=== PATIENT | male | born 1965 | race Caucasian/White ===

== ENCOUNTER 2020-04-10 11:09 | Inpatient (IN) | payer OTHER ==
[~2020-04-10] VITALS: Ht 172.7 cm; Wt 118.4 kg
[2020-04-10 11:33] LABS: BASOPHILS # (AUTO) 0.1 /CMM (0.0-0.2); BASOPHILS % (AUTO) 1.1 % (0.0-2.0); HEMATOCRIT 45 % (39-51); HEMOGLOBIN 15.1 g/dL (13.5-17.5); LYMPHOCYTES # (AUTO) 2.6 /CMM (0.8-4.8); LYMPHOCYTES % (AUTO) 41.3 % (20.0-44.0); MEAN CORPUSCULAR HGB CONC 34 g/dl (31.0-36.0); MEAN CORPUSCULAR VOLUME 84 fL (80-96); MONOCYTES # (AUTO) 0.5 /CMM (0.1-1.30); NEUTROPHILS # (AUTO) 2.7 /CMM (1.8-8.9); NEUTROPHILS % (AUTO) 42.6 % (43.0-81.0); PLATELET COUNT (AUTO) 290 /CMM (150-450); WHITE BLOOD COUNT (AUTO) 6.4 K/uL (4.3-11.0)
[2020-04-10] MEDS ORDERED: GABA-532 PO (11:38)
[2020-04-10] MEDS ORDERED: BACL20TA PO (11:38)
[2020-04-10 11:49] LABS: ALANINE AMINOTRANSFERASE 16 U/L (12-78); ALBUMIN 3.8 g/dL (3.4-5.0); ALKALINE PHOSPHATASE 59 U/L (46-116); ASPARTATE AMINOTRANSFERASE 11 U/L (15-37); BILIRUBIN,TOTAL 0.2 mg/dL (0.2-1.0); CALCIUM, SERUM 8.8 mg/dL (8.5-10.1); CARBON DIOXIDE 23 mmol/L (21-32); CHLORIDE 105 mmol/L (98-107); CREATININE 0.9 mg/dL (0.6-1.3); GLUCOSE 112 mg/dL (74-106); POTASSIUM 3.9 mmol/L (3.5-5.1); SODIUM SERUM 141 mmol/L (136-145); TOTAL PROTEIN, SERUM 7.1 g/dL (6.4-8.2); UREA NITROGEN, BLOOD 21 mg/dL (7-18)
[2020-04-10 12:27] LABS: CHOLESTEROL 216 mg/dL (<200); HDL CHOLESTEROL 38 mg/dL (40-60); LDL 123 mg/dL (0-99); TRIGLYCERIDES 254 mg/dL (30-150)
[2020-04-10] MEDS ORDERED: ASPIRIN 81 MG TAB.CHEW ONE (12:47)
[2020-04-10] MEDS ORDERED: ASPIRIN 81 MG TAB.CHEW PO ONE (13:00)
[2020-04-10 15:26] VITALS: BP 130/95
[2020-04-10 15:55] LABS: BASOPHILS # (AUTO) 0.1 /CMM (0.0-0.2); EOSINOPHILS % (AUTO) 5.7 % (0.0-6.0); HEMATOCRIT 46 % (39-51); HEMOGLOBIN 15.2 g/dL (13.5-17.5); LYMPHOCYTES # (AUTO) 2.3 /CMM (0.8-4.8); LYMPHOCYTES % (AUTO) 30.9 % (20.0-44.0); MEAN CORPUSCULAR HGB CONC 33 g/dl (31.0-36.0); MEAN CORPUSCULAR VOLUME 83 fL (80-96); MONOCYTES # (AUTO) 0.6 /CMM (0.1-1.30); MONOCYTES % (AUTO) 8.1 % (2.0-12.0); NEUTROPHILS % (AUTO) 54.3 % (43.0-81.0); PLATELET COUNT (AUTO) 298 /CMM (150-450); RED BLOOD CELL COUNT(AUTO) 5.58 MIL/uL (4.5-6.0); WHITE BLOOD COUNT (AUTO) 7.4 K/uL (4.3-11.0)
[2020-04-10 16:00] VITALS: BP 130/100
[2020-04-10 16:11] LABS: ALBUMIN 3.9 g/dL (3.4-5.0); BILIRUBIN,TOTAL 0.3 mg/dL (0.2-1.0); CREATININE 0.8 mg/dL (0.6-1.3); TOTAL PROTEIN, SERUM 7.4 g/dL (6.4-8.2)
[2020-04-10] MEDS ORDERED: BLOOD SUGAR DIAGNOSTIC 1 EACH STRIP IN SCH ×2 (17:30→18:00)
[2020-04-10 20:00] VITALS: BP_SYST 130; BP_SYST 139; BP_DIAS 81; BP_DIAS 83
[2020-04-10] MEDS: HYDROCODONE/APAP 5/325MG TABLET PO PRN (20:02)
[2020-04-10] MEDS: SIMVASTATIN 20 MG TABLET PO SCH (21:18)
[2020-04-10] MEDS ORDERED: SIMVASTATIN 40 MG TABLET PO SCH (22:00)
[2020-04-11] VITALS: BP 122/74
[2020-04-11 04:00] VITALS: BP 122/79
[2020-04-11 08:00] VITALS: BP 128/79
[2020-04-11] MEDS: PANTOPRAZOLE 40 MG TABLET.DR PO SCH (08:16)
[2020-04-11] MEDS: CLOPIDOGREL BISULFATE 75 MG TABLET PO SCH (08:16)
[2020-04-11] MEDS: ASPIRIN EC 81 MG TABLET.DR PO SCH (08:16)
[2020-04-11] MEDS ORDERED: ASPIRIN EC 325 MG TABLET.DR PO SCH (09:00)
[2020-04-11 12:00] VITALS: BP 135/78
[2020-04-11] MEDS ORDERED: GABA-532 PO (14:36)
[2020-04-11 16:00] VITALS: BP 119/72
[2020-04-11] MEDS: BACLOFEN (10 MG) 10 MG TABLET PO SCH ×2 (16:51→21:08)
[2020-04-11 20:00] VITALS: BP 129/79
[2020-04-11] MEDS: SIMVASTATIN 20 MG TABLET PO SCH (21:08)
[2020-04-12] VITALS: BP 135/77
[2020-04-12 04:00] VITALS: BP 126/82
[2020-04-12] MEDS: GABAPENTIN 300 MG CAPSULE PO SCH ×2 (07:09→12:04)
[2020-04-12] MEDS: PANTOPRAZOLE 40 MG TABLET.DR PO SCH (07:09)
[2020-04-12 08:00] VITALS: BP 144/76
[2020-04-12] MEDS: ASPIRIN EC 81 MG TABLET.DR PO SCH (08:42)
[2020-04-12] MEDS: CLOPIDOGREL BISULFATE 75 MG TABLET PO SCH (08:42)
[2020-04-12] MEDS: BACLOFEN (10 MG) 10 MG TABLET PO SCH ×4 (08:42→21:09)
[2020-04-12] MEDS ORDERED: CLOP75TA15 PO (11:02)
[2020-04-12] MEDS ORDERED: SIMV-46 PO (11:07)
[2020-04-12] MEDS ORDERED: ASPI-1420 PO (11:07)
[2020-04-12] MEDS: HYDROCODONE/APAP 5/325MG TABLET PO PRN (14:52)
[2020-04-12 16:00] VITALS: BP 124/76
[2020-04-12 20:00] VITALS: BP 138/78
[2020-04-12] MEDS: SIMVASTATIN 20 MG TABLET PO SCH (21:09)
[2020-04-13] VITALS (13 sets, daily range): BP systolic 110–143; BP diastolic 54–84
[2020-04-13] MEDS: GABAPENTIN 300 MG CAPSULE PO SCH ×2 (06:11→12:00)
[2020-04-13] MEDS: PANTOPRAZOLE 40 MG TABLET.DR PO SCH (07:30)
[2020-04-13] MEDS: BACLOFEN (10 MG) 10 MG TABLET PO SCH ×4 (09:00→20:52)
[2020-04-13] MEDS: CLOPIDOGREL BISULFATE 75 MG TABLET PO SCH (09:00)
[2020-04-13] MEDS: ASPIRIN EC 81 MG TABLET.DR PO SCH (09:00)
[2020-04-13] MEDS ORDERED: KETAMINE HCL (500MG/10ML) 50 MG/ML VIAL ONE (10:14)
[2020-04-13] MEDS ORDERED: IOHEXOL-350 100 ML VIAL IV ONE (12:03)
[2020-04-13] MEDS ORDERED: IV NS 0.9% 250 ML IV ONE (12:03)
[2020-04-13] MEDS ORDERED: METOPROLOL TARTRATE INJ 5 MG/5 ML AMPUL ONE (12:13)
[2020-04-13] MEDS ORDERED: NITROGLYCERIN 0.4 MG/TAB BOTTLE ONE (12:13)
[2020-04-13] MEDS ORDERED: IOHEXOL 50 ML IV ONE (12:59)
[2020-04-13] MEDS ORDERED: NITROGLYCERIN 0.4 MG/TAB BOTTLE SL ONE (13:30)
[2020-04-13] MEDS: SIMVASTATIN 20 MG TABLET PO SCH (21:23)
[2020-04-14] MEDS: GABAPENTIN 300 MG CAPSULE PO SCH ×2 (06:12→12:45)
[2020-04-14 07:53] VITALS: BP 147/91
[2020-04-14] MEDS: ASPIRIN EC 81 MG TABLET.DR PO SCH (08:19)
[2020-04-14] MEDS: PANTOPRAZOLE 40 MG TABLET.DR PO SCH (08:19)
[2020-04-14] MEDS: BACLOFEN (10 MG) 10 MG TABLET PO SCH ×2 (08:20→12:56)
[2020-04-14] MEDS: CLOPIDOGREL BISULFATE 75 MG TABLET PO SCH (08:20)
[2020-04-14] MEDS ORDERED: NIFEdipine XL (30MG) 30 MG TAB PO SCH (09:00)
[2020-04-14] MEDS ORDERED: APIXABAN 5 MG TABLET PO SCH (09:00)
[2020-04-14] MEDS ORDERED: APIX5TAB PO (10:36)
[2020-04-14] MEDS ORDERED: VERA100C4 PO (10:36)
[2020-04-14 11:25] VITALS: BP 147/91
[2020-04-14 15:58] VITALS: BP 128/71
== END 2020-04-14 16:51 | disposition home or self-care (01) | DRG 65 ==
LOC: ER 11:13 → TELE 15:10 → MED 04-12 08:13 → ICU 04-13 10:14 → MED 04-13 17:36
PROVIDERS: ADMIT Nurse Practitioner Acute Care; ATTEND Internal Medicine
DX: I63.9 Cerebral infarction, unspecified (principal); Z68.41 Body mass index [BMI] 40.0-44.9, adult; E44.0 Moderate protein-calorie malnutrition; E66.9 Obesity, unspecified; E78.5 Hyperlipidemia, unspecified; I48.91 Unspecified atrial fibrillation; R40.2362 Coma scale, best motor response, obeys commands, at arrival to emergency department; R40.2132 Coma scale, eyes open, to sound, at arrival to emergency department; R40.2252 Coma scale, best verbal response, oriented, at arrival to emergency department; R29.700 NIHSS score 0; E78.00 Pure hypercholesterolemia, unspecified; Z79.899 Other long term (current) drug therapy; Z86.73 Personal history of transient ischemic attack (TIA), and cerebral infarction without residual deficits; G89.29 Other chronic pain; G47.33 Obstructive sleep apnea (adult) (pediatric); Z82.49 Family history of ischemic heart disease and other diseases of the circulatory system; Z81.8 Family history of other mental and behavioral disorders; G62.9 Polyneuropathy, unspecified; W18.30XA Fall on same level, unspecified, initial encounter; Y92.009 Unspecified place in unspecified non-institutional (private) residence as the place of occurrence of the external cause
CPT/HCPCS: 36415; 70450-TC; 70551-TC; 71045-TC; 75574; 80048-TC; 80053-TC; 80061-TC; 80076-TC; 83735-TC; 84484-TC; 85025-TC; 85730-TC; 87081-TC; 93307-TC; 93312-TC; 93880-TC; 95819-TC; 97110-TC; 97116-TC; 97530-TC; C9803; G0378; J3490; J7030; J7050; Q9967